=== PATIENT | male | born 1940 | race Caucasian/White ===

== ENCOUNTER → 2016-05-18 | Outpatient (CLI) | payer MEDICARE ==
[~2016-05-18] MED LIST: ASPI81TA85 PO; ATEN25TA PO; ATOR1TAB21 PO; COLA100C PO; FLOM5CAP PO; GLYB5TAB PO; JANU100T PO; OXYC1TAB23 PO; PERC5TAB6 PO; TYLE325C PO; TYLE325T5 PO
[2016-05-18 13:34] LABS: MEAN CORPUSCULAR HEMOGLOBIN 32.5 pg (27.0-33.0); MEAN CORPUSCULAR HGB CONC 33.4 g/dl (32.0-36.5); MEAN CORPUSCULAR VOLUME 97.5 fl (80.0-96.0); RED CELL DISTRIBUTION WIDTH 15.3 % (11.5-14.5)
[2016-05-18 13:50] LABS: ALBUMIN 3.9 GM/DL (3.2-5.2); ALBUMIN/GLOBULIN RATIO 1.3 (1.00-1.93); BILIRUBIN,TOTAL 0.8 MG/DL (0.2-1.0); CREATININE FOR GFR 1.28 MG/DL (0.70-1.30); GLOMERULAR FILTRATION RATE 58.3 (>42); POTASSIUM SERUM 5.1 MEQ/L (3.5-5.1); TOTAL PROTEIN 6.9 GM/DL (6.4-8.2)
== END ==
LOC: M SMT 10:42
PROVIDERS: ATTEND Urology
DX: Z85.51 Personal history of malignant neoplasm of bladder (principal)

== ENCOUNTER → 2016-05-26 | Outpatient (REF) | payer MEDICARE ==
[~2016-05-26] MED LIST changes: -COLA100C PO; +COLA100C3 PO
== END ==
LOC: M SMT 17:12
PROVIDERS: ATTEND Urology
DX: Z85.51 Personal history of malignant neoplasm of bladder (principal); R39.89 Other symptoms and signs involving the genitourinary system

== ENCOUNTER → 2016-07-22 | Outpatient (REF) | payer MEDICARE ==
[~2016-07-22] MED LIST changes: -COLA100C3 PO; +COLA100C5 PO; +GLYB1TAB67 PO; -GLYB5TAB PO; +PERC5TAB12 PO; -PERC5TAB6 PO
== END ==
LOC: M SMT 13:09
PROVIDERS: ATTEND Urology
DX: Z85.51 Personal history of malignant neoplasm of bladder (principal)

== ENCOUNTER → 2016-10-20 | Outpatient (CLI) | payer MEDICARE ==
[2016-10-20 18:27] LABS: MEAN CORPUSCULAR HEMOGLOBIN 33.6 pg (27.0-33.0); MEAN CORPUSCULAR HGB CONC 34.5 g/dl (32.0-36.5); MEAN CORPUSCULAR VOLUME 97.6 fl (80.0-96.0); RED CELL DISTRIBUTION WIDTH 14.8 % (11.5-14.5); WHITE BLOOD COUNT 11.5 K/mm3 (4.0-10.0)
[2016-10-20 19:09] LABS: ALBUMIN 4.1 GM/DL (3.2-5.2); ALBUMIN/GLOBULIN RATIO 1.21 (1.00-1.93); BILIRUBIN,TOTAL 1.5 MG/DL (0.2-1.0); CALCIUM LEVEL 9.2 MG/DL (8.8-10.2); CREATININE FOR GFR 1.25 MG/DL (0.70-1.30); GLOMERULAR FILTRATION RATE 59.9 (>42); TOTAL PROTEIN 7.5 GM/DL (6.4-8.2)
[2016-10-20 19:16] LABS: POTASSIUM SERUM 5.5 MEQ/L (3.5-5.1)
== END ==
LOC: M SMT 13:53
PROVIDERS: ATTEND Urology
DX: Z85.51 Personal history of malignant neoplasm of bladder (principal); Z79.899 Other long term (current) drug therapy

== ENCOUNTER → 2016-10-27 | Outpatient (REF) | payer MEDICARE | LOC: M SMT 12:55 | PROVIDERS: ATTEND Urology | DX: Z08 Encounter for follow-up examination after completed treatment for malignant neoplasm (principal); Z85.51 Personal history of malignant neoplasm of bladder ==

== ENCOUNTER → 2016-11-10 | Outpatient (CLI) | payer MEDICARE ==
[~2016-11-10] MED LIST changes: +ISOVUE-370 76% 100ML VIAL (Q9967) As Ordered ONE
--- NOTE | 2016-11-10 15:15 | REP ---
CT UROGRAM WITH AND WITHOUT CONTRAST: TECHNIQUE: Axial noncontrast images through the abdomen followed by contrast-enhanced images through the abdomen and pelvis using 100 mL Isovue 370 intravenous contrast material, with coronal and sagittal reformations. COMPARISON: 02/17/2015, 05/31/2015 The patient has had removal of a left renal mass. The visualized lung bases demonstrate interstitial fibrotic changes. The liver, spleen and pancreas are unremarkable. Adrenal glands are thickened and unchanged in appearance with no discrete nodule. The right kidney is normal in appearance. The left kidney demonstrates evidence of prior surgery with removal of the previously noted left renal mass. No renal calculi are seen bilaterally. There is no hydroureteronephrosis. The abdominal aortic aneurysm is stable with moderate atherosclerotic calcifications of the abdominal aorta. Maximum AP diameter is 3.8 cm. There is no adenopathy. There is no free air or free fluid. There is no bowel wall thickening. The appendix appears normal. There is no evidence of a pelvic mass. Previously noted mass in the bladder also appears to have been removed. Sigmoid diverticulosis is noted without evidence of diverticulitis. IMPRESSION: Stable chronic findings as above. No current evidence of mass or adenopathy. Signed by Parker Cortes MD 11/10/2016 05:23 P
== END ==
LOC: M RAD 10:50
PROVIDERS: ATTEND Urology
DX: C64.2 Malignant neoplasm of left kidney, except renal pelvis (principal); Z85.51 Personal history of malignant neoplasm of bladder
CPT/HCPCS: 74178; Q9967

== ENCOUNTER → 2016-11-17 | Outpatient (REF) | payer MEDICARE ==
[~2016-11-17] MED LIST changes: -ISOVUE-370 76% 100ML VIAL (Q9967) As Ordered ONE
== END ==
LOC: M LAB REF 09:55
PROVIDERS: ATTEND Internal Medicine
DX: Z01.818 Encounter for other preprocedural examination (principal); Z79.899 Other long term (current) drug therapy

== ENCOUNTER 2016-11-25 11:23 | Day surgery (SDC) | payer MEDICARE ==
[~2016-11-25] VITALS: Ht 177.8 cm; Wt 73.9 kg
[~2016-11-25 11:23] MED LIST changes: +LIDOCAINE 2% INJ 100 MG/5 ML SDV (FOR ANES.) As Ordered ONE; +LR 1,000 ML IV ONE; +MIDAZOLAM INJ 2 MG/2 ML VIAL (J2250) As Ordered ONE; +PROPOFOL 200 MG/20 ML VIAL As Ordered ONE; +ROCURONIUM BROMIDE 50 MG/5 ML VIAL/SYRINGE As Ordered ONE; +fentaNYL 250 MCG/5 ML INJECTION (J3010) As Ordered ONE
[2016-11-25] MEDS ORDERED: ceFAZolin 2 GM/D5W 50 ML IV BAG (J0690) As Ordered ONE (11:46)
[2016-11-25] MEDS ORDERED: ONDANSETRON 4MG/2ML VIAL (J2405) As Ordered ONE (12:35)
[2016-11-25] MEDS ORDERED: ONDANSETRON 4MG/2ML VIAL (J2405) IV PRN (13:15)
[2016-11-25] MEDS ORDERED: NORCO, ANEXSIA 5/325MG TABLET (HYDROcodone/ACETAMINOPHEN) PO PRN (13:15)
[2016-11-25] MEDS ORDERED: LR 1,000 ML IV SCH (13:15)
[2016-11-25 14:00] VITALS: BP 140/63
--- NOTE | 2016-11-25 20:48 | RO ---
DATE OF PROCEDURE: 11/25/2016 PREPROCEDURE DIAGNOSIS: Prostatic urethral mass. POSTPROCEDURE DIAGNOSIS: Prostatic urethral mass. PROCEDURE: Cystoscopy, transurethral resection of bladder tumor (less than 2 cm). SURGEON: Ken Judge MD CMM TECHNICIAN: None. ANESTHESIA: General. OPERATIVE INDICATIONS: This is a 75-year-old male with a history of high grade bladder cancer, who, on recent surveillance cystoscopy, was found to have a papillary mass at 9:00 o'clock in his prostatic urethra. It was recommended that he be brought to the operating room today for resection. DESCRIPTION OF PROCEDURE: The patient was brought to the operating room and general anesthesia was induced. Prophylactic antibiotics were infused. He was then placed in the dorsal lithotomy position and prepped and draped in the usual sterile fashion. A rigid cystoscope was then inserted into the ureteral meatus and advanced to the bladder. Once within the bladder, the bladder was thoroughly examined and no tumors were seen within the bladder. The scope was then pulled back into the prostatic urethra and at the 9:00 o'clock position the papillary urethral mass was seen. At this point, we utilized resectoscope to resect the mass entirely. The mass was than handed off to be sent for pathologic analysis. The coagulation current was utilized to cauterize the resection until there was good hemostasis. At this point, the bladder was emptied of all fluid and this marked conclusion of the procedure. The patient was then taken out of the dorsal lithotomy position, awakened from anesthesia and transported to the recovery room in stable condition. ESTIMATED BLOOD LOSS: 0 mL. COMPLICATIONS: None. SPECIMENS: Prostatic urethral mass. PLAN: The patient will followup in the clinic in a few days to discuss pathology results.
== END 2016-11-25 14:22 | disposition home or self-care (01) ==
LOC: M SDC 11:23
PROVIDERS: ATTEND Urology
DX: D41.4 Neoplasm of uncertain behavior of bladder (principal); I25.10 Atherosclerotic heart disease of native coronary artery without angina pectoris; I25.2 Old myocardial infarction; I10 Essential (primary) hypertension; E78.00 Pure hypercholesterolemia, unspecified; E11.9 Type 2 diabetes mellitus without complications; C67.9 Malignant neoplasm of bladder, unspecified; Z72.0 Tobacco use; Z79.899 Other long term (current) drug therapy; Z79.82 Long term (current) use of aspirin
CPT/HCPCS: 52234; 88305; J0690; J2250; J2405; J3010

== ENCOUNTER → 2016-12-29 | Outpatient (CLI) | payer MEDICARE ==
[~2016-12-29] MED LIST changes: -LIDOCAINE 2% INJ 100 MG/5 ML SDV (FOR ANES.) As Ordered ONE; -LR 1,000 ML IV ONE; -MIDAZOLAM INJ 2 MG/2 ML VIAL (J2250) As Ordered ONE; -PROPOFOL 200 MG/20 ML VIAL As Ordered ONE; -ROCURONIUM BROMIDE 50 MG/5 ML VIAL/SYRINGE As Ordered ONE; -fentaNYL 250 MCG/5 ML INJECTION (J3010) As Ordered ONE
== END ==
LOC: M SMT 14:36
PROVIDERS: ATTEND Urology
DX: C67.9 Malignant neoplasm of bladder, unspecified (principal); Z79.899 Other long term (current) drug therapy

== ENCOUNTER → 2017-01-26 | Outpatient (REF) | payer MEDICARE | LOC: M SMT 13:03 | PROVIDERS: ATTEND Urology | DX: C67.9 Malignant neoplasm of bladder, unspecified (principal) ==